=== PATIENT | male | born 1960 | race Caucasian/White ===

== ENCOUNTER 2016-06-28 13:15 | Emergency (ER) | payer SELFPAY ==
[~2016-06-28] VITALS: Ht 167.6 cm; Wt 70.0 kg
[2016-06-28 13:35] VITALS: BP 148/77; PULSE 76; RESP 20; TEMP 97.5; O2SAT 98
[2016-06-28 13:50] VITALS: BP 142/75; PULSE 77; RESP 16; O2SAT 100
[2016-06-28 14:00] VITALS: BP 156/87; PULSE 90; RESP 18; O2SAT 100
--- NOTE | 2016-06-28 14:14 | PD ---
HPI Chief Complaint: Chest Pain Time Seen by Provider: 14:01 Travel History International Travel<30 days: No Contact w/Intl Traveler<30days: No Traveled to known affect area: No History of Present Illness HPI The patient is a 56-year-old male who presents to the emergency department via EMS from his hotel room for multiple complaints. The patient states he recently moved from [place] to [place] one week ago. The patient states [place], was staying in a hotel, when he ran out of his medications. The patient states he ran out of his Seroquel, trazodone, pain medications, and has been self medicating with alcohol , methamphetamines, and cocaine. The patient states he wanted to quit the medications and is currently requesting detoxification. The patient notes he has a history of chronic back pain and sciatica as well as psychiatric disorders. The patient states he developed chest pain earlier today that was substernal, sharp, associated with mild shortness of breath and nausea. The patient denies any personal history of coronary artery disease or previous stent placement. He also complains of right lower extremity pain secondary to chronic sciatica. The patient states he is been drinking alcohol excessively over the last 4 days and has been unable to tolerate any oral intake secondary to persistent nausea and vomiting. Symptoms are moderate, exacerbated by history of alcohol abuse and recent drug use, and there are no current alleviating factors. [facility] Past Medical History Medical History: Denies Significant Hx Past Surgical History Surgical History: No Previous Surgery Social History Alcohol Use: Yes (A LOT) Tobacco Use: Yes (PACK A DAY) Substance Use: Yes (DEMEROL,CRACK,CRYSTAL METH) Allergies-Medications (Allergen,Severity, Reaction): Coded Allergies: Codeine (Verified Allergy, Unknown, 06/28/16) Reported Meds & Prescriptions Reported Meds & Active Scripts Active No Active Prescriptions or Reported Medications Review of Systems Except as stated in HPI: all other systems reviewed are Neg General / Constitutional: No: Fever HENT: Positive: Lightheadedness Cardiovascular: Positive: Chest Pain or Discomfort Respiratory: Positive: Shortness of Breath Gastrointestinal: Positive: Nausea, Vomiting Musculoskeletal: Positive: Pain (chronic right leg pain secondary to sciatica) Psychiatric: Positive: Suicidal Ideations, Substance Abuse Physical Exam Narrative GENERAL: Awake, alert, 56-year-old male appears his stated age and is in no acute respiratory distress. Patient arrives via EMS with his luggage. SKIN: Focused skin assessment warm/dry. HEAD: Atraumatic. Normocephalic. EYES: Pupils equal and round. No scleral icterus. No injection or drainage. ENT: No nasal bleeding or discharge. Mucous membranes pink and moist. NECK: Trachea midline. No JVD. CARDIOVASCULAR: Regular rate and rhythm. No murmur appreciated. RESPIRATORY: No accessory muscle use. Clear to auscultation. Breath sounds equal bilaterally. GASTROINTESTINAL: Abdomen soft, non-tender, nondistended. No rebound tenderness. MUSCULOSKELETAL: No obvious deformities. No clubbing. No cyanosis. No edema. NEUROLOGICAL: Awake and alert. No obvious cranial nerve deficits. Motor grossly within normal limits. Normal speech. Nonfocal. PSYCHIATRIC: Appropriate mood and affect; insight and judgment normal. Data Data Last Documented VS Vital Signs Date Time Temp Pulse Resp B/P Pulse Ox O2 Delivery O2 Flow Rate FiO2 06/28/16 14:00 90 18 156/87 100 Room Air 06/28/16 13:35 97.5 Orders Electrocardiogram (06/28/16 14:01) Ckmb (Isoenzyme) Profile (06/28/16 14:01) Complete Blood Count With Diff (06/28/16 14:) Comprehensive Metabolic Panel (06/28/16 14:) Magnesium (Mg) (06/28/16 14:01) Prothrombin Time / Inr (Pt) (06/28/16 14:01) Act Partial Throm Time (Ptt) (06/28/16 14:01) Troponin I (06/28/16 14:01) Lipase (06/28/16 14:01) Chest, Single Ap (06/28/16 14:01) Ecg Monitoring (06/28/16 14:01) Bilateral Bp Monitoring (06/28/16 14:01) Iv Access Insert/Monitor (06/28/16 14:01) Oximetry (06/28/16 14:) Oxygen Administration (06/28/16 14:01) Aspirin Chew (Aspirin Chew) (06/28/16 14:15) Morphine Inj (Morphine Inj) (06/28/16 14:15) Sodium Chloride 0.9% Flush (Ns Flush) (06/28/16 14:15) Sodium Chlorid 0.9% 500 Ml Inj (Ns 500 M (06/28/16 14:15) Ondansetron Inj (Zofran Inj) (06/28/16 14:15) Drug Screen, Random Urine (06/28/16 14:01) Psych Screen (06/28/16 14:04) CKMB (06/28/16 14:00) CKMB% (06/28/16 14:00) Troponin I (06/28/16 17:00) Labs Laboratory Tests Test 06/28/16 14:00 White Blood Count 10.1 TH/MM3 Red Blood Count 4.80 MIL/MM3 Hemoglobin 14.9 GM/DL Hematocrit 42.2 % Mean Corpuscular Volume 87.9 FL Mean Corpuscular Hemoglobin 31.0 PG Mean Corpuscular Hemoglobin 35.3 % Concent Red Cell Distribution Width 13.3 % Platelet Count 201 TH/MM3 Mean Platelet Volume 9.1 FL Neutrophils (%) (Auto) 89.2 % Lymphocytes (%) (Auto) 5.4 % Monocytes (%) (Auto) 5.0 % Eosinophils (%) (Auto) 0.1 % Basophils (%) (Auto) 0.3 % Neutrophils # (Auto) 9.0 TH/MM3 Lymphocytes # (Auto) 0.5 TH/MM3 Monocytes # (Auto) 0.5 TH/MM3 Eosinophils # (Auto) 0.0 TH/MM3 Basophils # (Auto) 0.0 TH/MM3 CBC Comment DIFF FINAL Differential Comment Prothrombin Time 10.9 SEC Prothromb Time International 1.0 RATIO Ratio Activated Partial 20.8 SEC Thromboplast Time Sodium Level 131 MEQ/L Potassium Level 3.9 MEQ/L Chloride Level 95 MEQ/L Carbon Dioxide Level 22.7 MEQ/L Anion Gap 13 MEQ/L Blood Urea Nitrogen 13 MG/DL Creatinine 0.66 MG/DL Estimat Glomerular Filtration 124 ML/MIN Rate Random Glucose 95 MG/DL Calcium Level 8.6 MG/DL Magnesium Level 1.9 MG/DL Total Bilirubin 0.9 MG/DL Aspartate Amino Transf 53 U/L (AST/SGOT) Alanine Aminotransferase 56 U/L (ALT/SGPT) Alkaline Phosphatase 86 U/L Total Creatine Kinase 558 U/L Creatine Kinase MB 15.9 NG/ML Creatine Kinase MB % 2.8 % Troponin I LESS THAN 0.02 NG/ML Total Protein 8.1 GM/DL Albumin 3.9 GM/DL Lipase 67 U/L MDM Medical Decision Making Medical Screen Exam Complete: Yes Emergency Medical Condition: Yes Medical Record Reviewed: Yes Interpretation(s) EKG reveals normal sinus rhythm with a rate 80. Q waves in lead 3, 2, and aVF. Small Q waves noted in lead V4, V5, and V6. Last Impressions Chest X-Ray 06/28/16 1401 Signed Impressions: Service Date/Time: Tuesday, June 28, 2016 14:12 - CONCLUSION: No definite acute finding is identified. There is a questionable abnormal appearance of the right hilum. It would be ideal to correlate with prior imaging studies. If none are available consider formal PA and lateral views of the chest or chest CT with IV contrast for further evaluation. Cirilo Daly MD Laboratory Tests Test 06/28/16 14:00 White Blood Count 10.1 TH/MM3 Red Blood Count 4.80 MIL/MM3 Hemoglobin 14.9 GM/DL Hematocrit 42.2 % Mean Corpuscular Volume 87.9 FL Mean Corpuscular Hemoglobin 31.0 PG Mean Corpuscular Hemoglobin 35.3 % Concent Red Cell Distribution Width 13.3 % Platelet Count 201 TH/MM3 Mean Platelet Volume 9.1 FL Neutrophils (%) (Auto) 89.2 % Lymphocytes (%) (Auto) 5.4 % Monocytes (%) (Auto) 5.0 % Eosinophils (%) (Auto) 0.1 % Basophils (%) (Auto) 0.3 % Neutrophils # (Auto) 9.0 TH/MM3 Lymphocytes # (Auto) 0.5 TH/MM3 Monocytes # (Auto) 0.5 TH/MM3 Eosinophils # (Auto) 0.0 TH/MM3 Basophils # (Auto) 0.0 TH/MM3 CBC Comment DIFF FINAL Differential Comment Prothrombin Time 10.9 SEC Prothromb Time International 1.0 RATIO Ratio Activated Partial 20.8 SEC Thromboplast Time Sodium Level 131 MEQ/L Potassium Level 3.9 MEQ/L Chloride Level 95 MEQ/L Carbon Dioxide Level 22.7 MEQ/L Anion Gap 13 MEQ/L Blood Urea Nitrogen 13 MG/DL Creatinine 0.66 MG/DL Estimat Glomerular Filtration 124 ML/MIN Rate Random Glucose 95 MG/DL Calcium Level 8.6 MG/DL Magnesium Level 1.9 MG/DL Total Bilirubin 0.9 MG/DL Aspartate Amino Transf 53 U/L (AST/SGOT) Alanine Aminotransferase 56 U/L (ALT/SGPT) Alkaline Phosphatase 86 U/L Total Creatine Kinase 558 U/L Creatine Kinase MB 15.9 NG/ML Creatine Kinase MB % 2.8 % Troponin I LESS THAN 0.02 NG/ML Total Protein 8.1 GM/DL Albumin 3.9 GM/DL Lipase 67 U/L Differential Diagnosis Differential diagnosis includes STEMI, acute coronary syndrome, cocaine toxicity , alcohol abuse, polysubstance ingestion, malingering, chronic pain. Narrative Course IV was established, labs are drawn and sent, and the patient was placed on cardiac telemetry monitoring and continuous pulse oximetry monitoring. EKG was ordered and interpreted. Chest x-ray was obtained. The patient received aspirin and IV fluids. The patient CKs elevated in the 500s, however, troponin is normal. Chest x-ray has abnormal appearing hilum, patient will need outpatient follow-up. The patient will have a second troponin, if negative, patient is medically cleared to be evaluated by psychiatry. Diagnosis Primary Impression: Polysubstance abuse Additional Impression: Atypical chest pain Scripts No Active Prescriptions or Reported Meds Condition: Stable Nas Jackson MD June 28, 2016 14:14
[2016-06-28] MEDS ORDERED: ASPIRIN 81 MG CHEW TAB PO ONE (14:15)
[2016-06-28] MEDS ORDERED: MORPHINE SULFATE 4 MG/ML INJ IV PUSH ONE (14:15)
[2016-06-28] MEDS ORDERED: SODIUM CHLORID 0.9% 500 ML INJ 500 ML IV ONE (14:15)
[2016-06-28] MEDS ORDERED: SODIUM CHLORIDE 0.9% FLUSH 10 ML FLUSH IVF PRN (14:15)
[2016-06-28] MEDS ORDERED: ONDANSETRON HCL 4 MG/2 ML VIAL IV PUSH ONE (14:15)
[2016-06-28 14:24] LABS: BASOPHIL % 0.3 % (0.0-2.0); EOSINOPHIL % 0.1 % (0.0-4.0); HEMATOCRIT 42.2 % (39.0-51.0); HEMO FLAGS DIFF FINAL; LYMPH % 5.4 % (9.0-44.0); LYMPHOCYTE # 0.5 TH/MM3 (1.0-4.8); MEAN CELL VOLUME 87.9 FL (80.0-100.0); MEAN CORPUSCULAR HGB CONC 35.3 % (32.0-36.0); NEUT % 89.2 % (16.0-70.0); PLATELET COUNT 201 TH/MM3 (150-450); RED CELL DISTRIBUTION WIDTH 13.3 % (11.6-17.2); WHITE BLOOD COUNT 10.1 TH/MM3 (4.0-11.0)
--- NOTE | 2016-06-28 14:38 | RADRPT ---
EXAM DATE/TIME: 06/28/2016 14:12 [facility] COMPARISON: No previous studies available for comparison. INDICATIONS : Chest pain, shortness of breath, nausea, vomiting. MEDICAL HISTORY : Smoker. SURGICAL HISTORY : None. ENCOUNTER: Initial ACUITY: 1 week PAIN SCORE: 8/10 LOCATION: Bilateral upper chest FINDINGS: AP view of the chest demonstrates a normal-sized cardiac silhouette. No effusion, consolidation, or p neumothorax is identified. Right hilum is questionably abnormal. Bones and soft tissues demonstrate n o acute finding. CONCLUSION: No definite acute finding is identified. There is a questionable abnormal appearance of the right hil um. It would be ideal to correlate with prior imaging studies. If none are available consider formal PA and lateral views of the chest or chest CT with IV contrast for further evaluation. Cirilo Daly MD on June 28, 2016 at 14:34 Board Certified Radiologist. This report was verified electronically.
[2016-06-28 14:39] LABS: APTT (PATIENT) 20.8 SEC (24.3-30.1); PROTHROMBIN TIME - PATIENT 10.9 SEC (9.8-11.6)
[2016-06-28 14:44] LABS: ALT (GPT) 56 U/L (12-78); ANION GAP 13 MEQ/L (5-15); AST (GOT) 53 U/L (15-37); BICARBONATE 22.7 MEQ/L (21.0-32.0); BLOOD UREA NITROGEN 13 MG/DL (7-18); CHLORIDE 95 MEQ/L (98-107); GLOMERULAR FILTRATION RATE 124 ML/MIN (>89); MAGNESIUM 1.9 MG/DL (1.5-2.5); POTASSIUM 3.9 MEQ/L (3.5-5.1); SODIUM (NA) 131 MEQ/L (136-145)
[2016-06-28 14:49] LABS: ALKALINE PHOSPHATASE 86 U/L (45-117); CREATINE KINASE 558 U/L (39-308); TOTAL BILIRUBIN ADULT 0.9 MG/DL (0.2-1.0)
[2016-06-28 15:01] LABS: CKMB 15.9 NG/ML (0.5-3.6)
[2016-06-28 16:22] VITALS: BP_SYST 132; BP_SYST 136; BP_DIAS 76; BP_DIAS 79; PULSE 77; RESP 16; O2SAT 100
[2016-06-28 18:09] LABS: AMPHETAMINE, URINE POS (NEG); BARBITURATES, URINE NEG (NEG); COCAINE, URINE POS (NEG)
[2016-06-28 18:14] VITALS: BP 113/67; PULSE 86; RESP 16; O2SAT 100
[2016-06-28 20:24] VITALS: BP 124/76; PULSE 85; RESP 20; O2SAT 95
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
--- NOTE | 2016-06-29 10:26 | EKG ---
Date Performed: 06/28/2016 Time Performed: 13:51:04 PTAGE: 56 years EKG: Sinus rhythm LATERAL MYOCARDIAL INFARCTION NO PREVIOUS TRACING DOCTOR: Nadya Kim Interpretating Date/Time 06/29/2016 10:24:43
== END 2016-06-28 21:35 | disposition home or self-care (01) ==
LOC: NEPE 13:15 → NEPJ 21:35
DX: F19.10 Other psychoactive substance abuse, uncomplicated (principal); R07.89 Other chest pain; R11.2 Nausea with vomiting, unspecified; R06.02 Shortness of breath; F31.9 Bipolar disorder, unspecified; F17.200 Nicotine dependence, unspecified, uncomplicated
CPT/HCPCS: 71010; 80053; 80307; 82550; 82552; 83690; 83735; 84484; 85025; 85610; 85730; 93005; 96361; 96374; 96375; 99285; J2270; J2405; J7040

== ENCOUNTER 2016-07-23 03:32 | Emergency (ER) | payer SELFPAY ==
[~2016-07-23] VITALS: Ht 175.3 cm; Wt 85.0 kg
[2016-07-23 03:35] VITALS: BP 117/83; PULSE 93; RESP 14; TEMP 98.2; O2SAT 95
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
[2016-07-23] MEDS ORDERED: TRAZ50TA12 PO (06:18)
[2016-07-23] MEDS ORDERED: SERO100T PO (06:18)
[2016-07-23] MEDS ORDERED: CLON1 PO (06:18)
[2016-07-23] MEDS ORDERED: LISI-515 PO (06:18)
== END 2016-07-23 05:44 | disposition home or self-care (01) ==
LOC: NEPE 03:32
DX: S09.90XA Unspecified injury of head, initial encounter (principal); G44.319 Acute post-traumatic headache, not intractable; F17.200 Nicotine dependence, unspecified, uncomplicated; W50.0XXA Accidental hit or strike by another person, initial encounter
CPT/HCPCS: 70450; 99284

== ENCOUNTER 2016-07-23 06:03 | Emergency (ER) | payer OTHER ==
[~2016-07-23] VITALS: Ht 175.3 cm; Wt 87.0 kg
[2016-07-23 06:11] VITALS: BP 126/72; PULSE 84; RESP 18; TEMP 98.1; O2SAT 97
[2016-07-23] MEDS ORDERED: LISI-515 PO (06:18)
[2016-07-23] MEDS ORDERED: SERO100T PO (06:18)
[2016-07-23] MEDS ORDERED: TRAZ50TA12 PO (06:18)
[2016-07-23] MEDS ORDERED: CLON1 PO (06:18)
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
[2016-07-23 07:42] LABS: AMPHETAMINE, URINE NEG (NEG); BARBITURATES, URINE NEG (NEG); COCAINE, URINE POS (NEG)
[2016-07-23 08:50] VITALS: BP 122/82; PULSE 79; RESP 18; TEMP 98.6; O2SAT 95
[2016-07-23 08:51] VITALS: BP 122/82; PULSE 79; RESP 18; TEMP 98.6; O2SAT 95
[2016-07-23 10:34] VITALS: BP 124/81; PULSE 84; RESP 16; O2SAT 96
[2016-07-23] MEDS ORDERED: LORazepam 2 MG/ML VIAL IV PUSH PRN ×4 (14:45)
[2016-07-23] MEDS ORDERED: FLUMAZENIL 0.5 MG/5 ML VIAL IV PUSH PRN (14:45)
[2016-07-23] MEDS: LORazepam 1 MG TAB PO PRN ×2 (15:00→18:48)
[2016-07-23 18:45] VITALS: BP 137/75; PULSE 75; RESP 18
[2016-07-23 22:25] VITALS: BP 118/65; PULSE 73; RESP 18; O2SAT 98
[2016-07-24] MEDS: LORazepam 2 MG TAB PO PRN ×2 (01:06→04:42)
[2016-07-24 02:00] VITALS: BP 115/59; PULSE 59; RESP 17; O2SAT 97
[2016-07-24] MEDS ORDERED: IBUPROFEN 600 MG TAB PO ONE (04:30)
[2016-07-24 06:13] VITALS: BP 130/71; PULSE 65; RESP 18; O2SAT 97
[2016-07-24 09:42] VITALS: BP 147/81; PULSE 85; RESP 18; O2SAT 98
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
== END 2016-07-24 11:03 | disposition home or self-care (01) ==
LOC: NEPD 06:03 → NEPJ 07-24 11:03
DX: Z02.89 Encounter for other administrative examinations (principal); F31.9 Bipolar disorder, unspecified; F19.10 Other psychoactive substance abuse, uncomplicated; I10 Essential (primary) hypertension; F17.200 Nicotine dependence, unspecified, uncomplicated; Z76.5 Malingerer [conscious simulation]; Z86.59 Personal history of other mental and behavioral disorders
CPT/HCPCS: 80307; 99284